=== PATIENT | female | born 1955 | race Caucasian/White ===

== ENCOUNTER → 2016-10-14 | Outpatient (CLI) | payer OTHER ==
[~2016-10-14] MED LIST: ASPI325T PO; ASPI81TA85 PO; ATEN50TA2 PO; CRES5TAB PO; ENAL10TA2 PO; LANTINJ4 SC; METF850T PO; PLAV75TA38 PO; VITA50003 PO; ZOLO100T PO
== END ==
LOC: M RAD 15:54
PROVIDERS: ATTEND Physician Assistant Medical
DX: Z12.31 Encounter for screening mammogram for malignant neoplasm of breast (principal)

== ENCOUNTER → 2016-10-20 | Outpatient (REF) | payer OTHER ==
[2016-10-20 15:55] LABS: BASO % 0.5 % (0.0-1.0); EOS # 0.2 K/mm3 (0.0-0.50); EOS % 2.5 % (0.0-3.0); LYMPH # 3.9 K/mm3 (1.5-4.5); LYMPH % 38.3 % (24.0-44.0); MEAN CORPUSCULAR HEMOGLOBIN 30.3 pg (27.0-33.0); MEAN CORPUSCULAR VOLUME 89.4 fl (80.0-96.0); MONO # 0.3 K/mm3 (0.0-0.8); MONO % 2.8 % (0.0-5.0); NEUTROPHILS # 5.5 K/mm3 (1.8-7.7); RED CELL DISTRIBUTION WIDTH 12.9 % (11.5-14.5); WHITE BLOOD COUNT 10.1 K/mm3 (4.0-10.0)
[2016-10-20 16:12] LABS: ALBUMIN 3.3 GM/DL (3.2-5.2); ALKALINE PHOSPHATASE 97 U/L (45-117); ALT/SGPT 21 U/L (12-78); ANION GAP 6 MEQ/L (8-16); AST/SGOT 13 U/L (15-37); BILIRUBIN,TOTAL 0.4 MG/DL (0.2-1.0); BLOOD UREA NITROGEN 11 MG/DL (7-18); CALCIUM LEVEL 8.9 MG/DL (8.8-10.2); CARBON DIOXIDE LEVEL 31 MEQ/L (21-32); CHLORIDE LEVEL 107 MEQ/L (98-107); CHOLESTEROL LEVEL 162 MG/DL (<200); CREATININE FOR GFR 0.81 MG/DL (0.55-1.02); GLOMERULAR FILTRATION RATE > 60.0 (>45); GLUCOSE, FASTING 138 MG/DL (80-110); POTASSIUM SERUM 4.7 MEQ/L (3.5-5.1); SODIUM LEVEL 144 MEQ/L (136-145); TOTAL PROTEIN 6.3 GM/DL (6.4-8.2); TRIGLYCERIDES LEVEL 205 MG/DL (<150)
== END ==
LOC: M LABDRAW1 15:27
PROVIDERS: ATTEND Physician Assistant Medical
DX: E11.9 Type 2 diabetes mellitus without complications (principal)

== ENCOUNTER → 2017-05-08 | Outpatient (REF) | payer MEDICARE, OTHER ==
[2017-05-08 13:53] LABS: BASO # 0.1 10^3/uL (0.0-0.2); BASO % 0.7 % (0.0-1.0); EOS # 0.3 10^3/uL (0.0-0.50); EOS % 2.4 % (0.0-3.0); HEMATOCRIT 42.1 % (36.0-47.0); HEMOGLOBIN 14.5 g/dl (12.0-16.0); IMMATURE GRANULOCYTE % 0.3 % (0-0); LYMPH % 35.7 % (24.0-44.0); MEAN CORPUSCULAR HGB CONC 34.4 g/dl (32.0-36.5); MEAN CORPUSCULAR VOLUME 87.2 fl (80.0-96.0); MONO # 0.5 10^3/uL (0.0-0.8); MONO % 4.7 % (0.0-5.0); NEUTROPHILS # 6.2 10^3/uL (1.8-7.7); NEUTROPHILS % 56.2 % (36.0-66.0); PLATELET COUNT, AUTOMATED 211 10^3/uL (150-450); RED BLOOD COUNT 4.83 10^6/uL (4.00-5.40); RED CELL DISTRIBUTION WIDTH 12.8 % (11.5-14.5); WHITE BLOOD COUNT 11.1 10^3/uL (4.0-10.0)
[2017-05-08 14:00] LABS: ESTIMATED AVERAGE GLUCOSE 183 MG/DL (60-110)
[2017-05-08 14:21] LABS: ALBUMIN 3.6 GM/DL (3.2-5.2); ALBUMIN/GLOBULIN RATIO 1.24 (1.00-1.93); ALKALINE PHOSPHATASE 104 U/L (45-117); ALT/SGPT 19 U/L (12-78); ANION GAP 9 MEQ/L (8-16); AST/SGOT 15 U/L (7-37); BILIRUBIN,TOTAL 0.4 MG/DL (0.2-1.0); BLOOD UREA NITROGEN 16 MG/DL (7-18); CALCIUM LEVEL 8.9 MG/DL (8.8-10.2); CARBON DIOXIDE LEVEL 28 MEQ/L (21-32); CHLORIDE LEVEL 105 MEQ/L (98-107); CHOLESTEROL LEVEL 149 MG/DL (<200); CHOLESTEROL RISK RATIO 4.257 (<5); CREATININE FOR GFR 0.86 MG/DL (0.55-1.02); GLOMERULAR FILTRATION RATE > 60.0 (>45); GLUCOSE, FASTING 180 MG/DL (80-110); HDL CHOLESTEROL 35 MG/DL (>40); NON-HDL-C 114 MG/DL; POTASSIUM SERUM 4.1 MEQ/L (3.5-5.1); SODIUM LEVEL 142 MEQ/L (136-145); TOTAL PROTEIN 6.5 GM/DL (6.4-8.2); TRIGLYCERIDES LEVEL 280 MG/DL (<150)
== END ==
LOC: M LABDRAW1 11:53
DX: E11.9 Type 2 diabetes mellitus without complications (principal)
CPT/HCPCS: 80053

== ENCOUNTER → 2018-02-26 | Outpatient (CLI) | payer MEDICARE ==
[~2018-02-26] MED LIST changes: -ASPI325T PO; -ASPI81TA85 PO; -ATEN50TA2 PO; -CRES5TAB PO; +E-Z-GAS II EFFERVESCENT PACKET (SODIUM BICARB./CITRIC ACID/SIMETHICONE) As Ordered; +E-Z-HD 98% w/w 340GM SUSP BTL As Ordered; +E-Z-PAQUE 96% w/w SUSP 176GM BTL As Ordered; -ENAL10TA2 PO; -LANTINJ4 SC; -METF850T PO; -PLAV75TA38 PO; -VITA50003 PO; -ZOLO100T PO
== END ==
LOC: M RAD 09:20
DX: R10.13 Epigastric pain (principal)
CPT/HCPCS: 74245

== ENCOUNTER 2018-06-16 12:06 | Emergency (ER) | payer MEDICARE ==
[~2018-06-16] VITALS: Ht 165.1 cm; Wt 106.8 kg
[~2018-06-16 12:06] MED LIST changes: +ASPI325T PO; +ASPI81TA85 PO; +ATEN50TA2 PO; +CRES5TAB PO; -E-Z-GAS II EFFERVESCENT PACKET (SODIUM BICARB./CITRIC ACID/SIMETHICONE) As Ordered; -E-Z-HD 98% w/w 340GM SUSP BTL As Ordered; -E-Z-PAQUE 96% w/w SUSP 176GM BTL As Ordered; +ENAL10TA2 PO; +LANTINJ4 SC; +METF850T4 PO; +PLAV1TAB2 PO; +VITA50005 PO; +ZOLO100T PO
[2018-06-16] MEDS ORDERED: ONDANSETRON 4MG/2ML VIAL (J2405) IV ONE (13:15)
[2018-06-16] MEDS ORDERED: MORPHINE 4 MG/ML 1ML VIAL/SYRINGE (J2270) IV PRN (13:15)
[2018-06-16] MEDS ORDERED: NS 1,000 ML IV ONE (13:15)
[2018-06-16 13:49] LABS: BASO # 0.1 10^3/uL (0.0-0.2); BASO % 0.3 % (0.0-1.0); EOS % 0.2 % (0.0-3.0); HEMATOCRIT 40.1 % (36.0-47.0); HEMOGLOBIN 13.4 g/dl (12.0-15.5); LYMPH # 2.9 10^3/uL (1.5-4.5); LYMPH % 19.9 % (24.0-44.0); MEAN CORPUSCULAR HEMOGLOBIN 29.1 pg (27.0-33.0); MEAN CORPUSCULAR HGB CONC 33.4 g/dl (32.0-36.5); MEAN CORPUSCULAR VOLUME 87.2 fl (80.0-96.0); MONO # 0.6 10^3/uL (0.0-0.8); MONO % 4.4 % (0.0-5.0); NEUTROPHILS # 10.7 10^3/uL (1.8-7.7); NEUTROPHILS % 74.7 % (36.0-66.0); PLATELET COUNT, AUTOMATED 263 10^3/uL (150-450); WHITE BLOOD COUNT 14.3 10^3/uL (4.0-10.0)
[2018-06-16] MEDS ORDERED: BYDU2INJ7 SC (13:59)
[2018-06-16] MEDS ORDERED: RANI150T PO (13:59)
[2018-06-16] MEDS ORDERED: ATOR40TA75 PO (13:59)
[2018-06-16 14:22] LABS: APPEARANCE, URINE CLEAR (CLEAR); BACTERIA, URINE AUTO NEGATIVE (NEGATIVE); BILIRUBIN, URINE AUTO NEGATIVE (NEGATIVE); BLOOD, URINE BLOOD 1+ (NEGATIVE); COLOR, URINE YELLOW (YELLOW); GLUCOSE, URINE (UA) AUTO NEGATIVE (NEGATIVE); KETONE, URINE AUTO NEGATIVE (NEGATIVE); LEUKOCYTE ESTERASE, URINE AUTO NEGATIVE (NEGATIVE); MUCUS, URINE SMALL (NEGATIVE); NITRITE, URINE AUTO NEGATIVE (NEGATIVE); PROTEIN, URINE AUTO NEGATIVE (NEGATIVE); RBC, URINE AUTO 10 /HPF (0-3); SPECIFIC GRAVITY URINE AUTO 1.018 (1.002-1.035); SQUAMOUS EPITHELIAL CELL UR AU 0 /HPF (0-6); UROBILINOGEN, URINE AUTO 0.2 mg/dL (0.0-2.0); WBC, URINE AUTO 1 /HPF (0-3)
[2018-06-16 14:27] LABS: ALBUMIN 3.3 GM/DL (3.2-5.2); ALT/SGPT 14 U/L (12-78); AMYLASE 20 U/L (25-115); BILIRUBIN,DIRECT 0.1 MG/DL (0.0-0.2); BILIRUBIN,TOTAL 0.6 MG/DL (0.2-1.0); BLOOD UREA NITROGEN 12 MG/DL (7-18); CALCIUM LEVEL 8.7 MG/DL (8.8-10.2); CARBON DIOXIDE LEVEL 33 MEQ/L (21-32); CHLORIDE LEVEL 104 MEQ/L (98-107); GLOMERULAR FILTRATION RATE > 60.0 (>45); GLUCOSE, FASTING 91 MG/DL (70-100); LIPASE 70 U/L (73-393); POTASSIUM SERUM 4.8 MEQ/L (3.5-5.1); SODIUM LEVEL 139 MEQ/L (136-145); TOTAL PROTEIN 6.7 GM/DL (6.4-8.2)
[2018-06-16] MEDS ORDERED: ISOVUE-370 76% 100ML VIAL (Q9967) As Ordered ONE (14:29)
--- NOTE | 2018-06-16 15:10 | REP ---
CT of the abdomen and pelvis with IV contrast, without bowel contrast for left lower quadrant pain: There are no comparisons. The visualized lung maguire are unremarkable. The hepatic parenchyma is homogeneous. There are surgical clips in the gallbladder fossa. Pancreas and spleen are normal size and unremarkable except for splenic calcified granulomas. The adrenals, kidneys and abdominal aorta are unremarkable. There are numerous diverticula in the descending colon and sigmoid colon. There is focal wall thickening of the sigmoid colon and there is clement colonic induration of the sigmoid colon. The findings are compatible with diverticulitis in the appropriate clinical setting. Neoplasm is also a possibility. There is no pericolonic fluid collection to suggest abscess. There is no pneumoperitoneum. There is no ascites. Pelvis: The appendix and terminal ileum are unremarkable. There is a hysterectomy. Vaginal cuff and adnexa are unremarkable. There is no ascites or adenopathy. Impression: Acute diverticulitis of the sigmoid colon without focal fluid collection to suggest abscess. Focal wall thickening of the sigmoid colon which could be related to diverticulitis or could represent neoplasm. No ascites or pneumoperitoneum. Cholecystectomy and hysterectomy. Electronically Signed by Kasi Thurston MD 06/16/2018 03:01 P
[2018-06-16] MEDS ORDERED: metroNIDAZOLE (FLAGYL) 500 MG TAB PO ONE (15:15)
[2018-06-16] MEDS ORDERED: CIPROFLOXACIN 500 MG TAB PO ONE (15:15)
[2018-06-16] MEDS ORDERED: FLAG500T PO (15:23)
[2018-06-16] MEDS ORDERED: LOTR1CRE12 TOP (15:23)
[2018-06-16] MEDS ORDERED: CIPR-249 PO (15:23)
[2018-06-16] MEDS ORDERED: ONDA4TAB6 PO (15:25)
[2018-06-16 15:48] VITALS: BP 196/95
== END 2018-06-16 15:51 | disposition home or self-care (01) ==
LOC: M ED 12:06
DX: K57.32 Diverticulitis of large intestine without perforation or abscess without bleeding (principal); B35.6 Tinea cruris; I10 Essential (primary) hypertension; E11.9 Type 2 diabetes mellitus without complications; E78.00 Pure hypercholesterolemia, unspecified; E28.2 Polycystic ovarian syndrome; Z86.73 Personal history of transient ischemic attack (TIA), and cerebral infarction without residual deficits; Z79.899 Other long term (current) drug therapy; Z79.82 Long term (current) use of aspirin; Z79.4 Long term (current) use of insulin

== ENCOUNTER 2018-06-18 08:38 | Inpatient (IN) | payer MEDICARE ==
[~2018-06-18] VITALS: Ht 165.1 cm; Wt 104.8 kg
[~2018-06-18 08:38] MED LIST changes: +ATOR40TA75 PO; +BYDU2INJ7 SC; +CIPR-249 PO; +FLAG500T PO; +LOTR1CRE12 TOP; +ONDA4TAB6 PO; +RANI150T PO
[2018-06-18] MEDS ORDERED: NS 1,000 ML IV SCH (09:01)
[2018-06-18] MEDS ORDERED: ONDANSETRON 4MG/2ML VIAL (J2405) IV ONE (09:15)
[2018-06-18] MEDS: MORPHINE 4 MG/ML 1ML VIAL/SYRINGE (J2270) IV PRN ×2 (09:27→13:37)
[2018-06-18 09:50] LABS: BASO # 0.1 10^3/uL (0.0-0.2); BASO % 0.4 % (0.0-1.0); EOS % 0.1 % (0.0-3.0); HEMATOCRIT 39.2 % (36.0-47.0); HEMOGLOBIN 12.8 g/dl (12.0-15.5); LYMPH # 2.2 10^3/uL (1.5-4.5); LYMPH % 13.5 % (24.0-44.0); MEAN CORPUSCULAR HEMOGLOBIN 28.4 pg (27.0-33.0); MEAN CORPUSCULAR HGB CONC 32.7 g/dl (32.0-36.5); MEAN CORPUSCULAR VOLUME 87.1 fl (80.0-96.0); MONO # 0.6 10^3/uL (0.0-0.8); MONO % 3.7 % (0.0-5.0); NEUTROPHILS # 13.2 10^3/uL (1.8-7.7); NEUTROPHILS % 81.6 % (36.0-66.0); PLATELET COUNT, AUTOMATED 289 10^3/uL (150-450); WHITE BLOOD COUNT 16.1 10^3/uL (4.0-10.0)
[2018-06-18 09:53] LABS: INR 1.1; PROTHROMBIN TIME 14.3 SECONDS (12.1-14.4)
[2018-06-18 09:54] LABS: PARTIAL THROMBOPLASTIN TIME 27.8 SECONDS (25.4-37.6)
[2018-06-18 10:02] LABS: ALT/SGPT 17 U/L (12-78); AMYLASE 15 U/L (25-115); BILIRUBIN,DIRECT < 0.1 MG/DL (0.0-0.2); BILIRUBIN,TOTAL 0.5 MG/DL (0.2-1.0); BLOOD UREA NITROGEN 11 MG/DL (7-18); CALCIUM LEVEL 8.6 MG/DL (8.8-10.2); CARBON DIOXIDE LEVEL 27 MEQ/L (21-32); CHLORIDE LEVEL 105 MEQ/L (98-107); CREATININE FOR GFR 0.75 MG/DL (0.55-1.30); GLOMERULAR FILTRATION RATE > 60.0 (>45); GLUCOSE, FASTING 165 MG/DL (70-100); LIPASE 69 U/L (73-393); POTASSIUM SERUM 4.3 MEQ/L (3.5-5.1); SODIUM LEVEL 138 MEQ/L (136-145); TOTAL PROTEIN 7.5 GM/DL (6.4-8.2)
[2018-06-18] MEDS: GASTROGRAFIN SOLUTION 30ML PO SCH ×2 (10:34→11:13)
[2018-06-18] MEDS ORDERED: CIPR500T39 PO (11:41)
[2018-06-18] MEDS ORDERED: METR-201 PO (11:41)
--- NOTE | 2018-06-18 13:27 | REP ---
CT ABDOMEN AND PELVIS WITH ORAL CONTRAST ONLY: 06/18/2018. Comparison: CT abdomen and pelvis 06/16/2018. Clinical history: Worsening left-sided abdominal pain with vomiting. Known sigmoid diverticulitis. Evaluate for perforation or abscess. Technique: Oral Gastrografin mixture 10 mL in 290 mL flavored water for two doses per our bowel contrast protocol. Scanning through the abdomen and pelvis with coronal and sagittal reconstructions provided. Findings: CT abdomen: The lung bases with minimal dependent atelectasis but otherwise clear. Trace pericardial thickening or fluid. There is no hiatal hernia. Some retained oral contrast in the stomach and contrast reaches the proximal jejunum distal ileum. No dilated loops to suggest ileus or obstruction. Gallbladder absent. Pancreas and adrenal glands normal. Kidneys without stone, mass or hydronephrosis. Aorta has calcifications without aneurysm. No periaortic or retroperitoneal pathologic sized lymphadenopathy. Abdominal portion of the colon shows the right colon, transverse colon and flexures with some scattered diverticula but no diverticulitis there. In the distal left colon at and just below the iliac crest there is now diverticulitis which was not present 2 days ago. This is mild. There is no fluid in the peroneal gutters. The more significant diverticulitis is in the sigmoid with extensive diverticulosis and scattered inflammatory changes with stranding in the fat and trace fluid. I do not see abscess, lung window review of all CT slices abdomen and pelvis shows no perforation or free air. The uterus is absent. Vaginal cuff intact. No pelvic mass. Small bowel loops in the pelvis without dilatation. No inflammatory changes about the cecum. I see no ventral or inguinal hernia nor pathologic sized inguinal adenopathy. The bone windows show no interval change. Degenerative disc and facet arthritic changes, some hip osteoarthritic change. No destructive lesion. Impression: 1. There is extensive sigmoid diverticulosis with diverticulitis and inflammatory changes in the pericolonic fat but no perforation or abscess. Trace fluid in the pelvis. No drainable abscess collection. 2. In the distal left colon there is a new separate area of diverticulitis which is fairly mild compared to the sigmoid component, but was not present 2 days ago. I see no other finding or interval change. Electronically Signed by Gino Dunaway MD 06/18/2018 07:50 P
[2018-06-18] MEDS ORDERED: CIPROFLOXACIN 400 MG in APPROPRIATE DILUENT 1 EA IV ONE (13:30)
[2018-06-18] MEDS ORDERED: metroNIDAZOLE 500 MG in APPROPRIATE DILUENT 1 EA IV ONE (13:30)
[2018-06-18] MEDS ORDERED: ACET500T15 PO (13:53)
[2018-06-18] MEDS ORDERED: ATEN25TA PO (13:53)
[2018-06-18] MEDS ORDERED: CLOT1CRE6 TOP (13:53)
[2018-06-18] MEDS ORDERED: ONDA4TAB6 PO (13:53)
[2018-06-18] MEDS ORDERED: METF-877 PO (13:54)
[2018-06-18] MEDS ORDERED: ONDANSETRON 4 MG TAB (S0181) PO PRN (16:45)
[2018-06-18] MEDS: NS 1,000 ML IV SCH (17:36)
[2018-06-18] MEDS ORDERED: DEXTROSE 50% 50 ML SYRINGE IV PRN (19:30)
[2018-06-18] MEDS ORDERED: GLUCOSE 4 GM CHEW TABLET PO PRN (19:30)
[2018-06-18] MEDS ORDERED: GLUCAGON FOR INJ 1 MG VIAL (J1610) SC PRN (19:30)
--- NOTE | 2018-06-18 20:41 | HPE ---
DATE OF ADMISSION: 06/18/[address] Hoyt. PRIMARY CARE PROVIDER: Melita David at [facility] CLEAR COAT SPRAYER: Dr. Oviedo HISTORY OF THE PRESENT ILLNESS: Ms. Angel is a 62-year-old female who initially presented to the emergency room (ER) 2 days ago for lower abdominal pain and nausea and vomiting, was found to have diverticulitis, sent home on oral antibiotics without any improvement and thus she returns to the ER today. She states that her pain worsened last night in the left lower quadrant, radiating into the back and associated nonbloody vomit earlier this morning. She describes the pain as sharp, achy, constant, worse with movement and with gas. A repeat CT of the abdomen on this admission reveals extensive sigmoid diverticulosis with diverticulitis and pericolonic fat, without any perforation or abscess. She is, therefore, being admitted after failing outpatient oral antibiotics. The patient states this feels like her similar episodes of diverticulitis in the past. She started she has 4-5 similar episodes per year and usually resolves with oral antibiotics and this is the first episode requiring admission and IV antibiotics for diverticulitis. PAST MEDICAL HISTORY: Insulin-dependent diabetes mellitus type 2. Hypertension with pulmonary hypertension. CVA. Diastolic congestive heart failure (CHF). Her 10/14/14 echo - grade 2 diastolic dysfunction. Mitral valve insufficiency. HOME MEDICATIONS: - Tylenol - aspirin 81 mg - atenolol 25 mg by mouth nightly - atorvastatin 40 mg by mouth nightly - Plavix 75 mg by mouth daily - clotrimazole - enalapril 10 mg nightly - Bydureon 2 mg subcu weekly - insulin glargine - metformin - Zofran - ranitidine - sertraline ALLERGIES: None. SOCIAL HISTORY: Actively smoking 5-8 cigarettes per day over the past 45 years. Currently is on disability due to her history of transient ischemic attack (TIAs). 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 SURGICAL HISTORY: Cholecystectomy, dilation and curettage (D and C) with exploratory laparotomy, two sections and a hysterectomy, right carotid artery stent with a shunt in the right eye due to stent dislodgement, right wrist cyst removal, and a right knee repair. REVIEW OF SYSTEMS: GENERAL: Denies any fevers, chills, weight loss. HEENT: Denies headache, blurred vision, eye pain, ear pain, dysphagia. CARDIAC: Denies chest pain, palpitations. RESPIRATORY: Denies coughing, wheezing, shortness of breath, or phlegm. ABDOMEN: Admits to nausea and vomiting. No hematemesis. No melena or hematochezia. Admits to left lower quadrant achy constant abdominal pain, similar to previous episodes of her diverticulitis. Denies any recent changes in bowel habits. SKIN: Denies any new rashes but admits to bilateral groin yeast-like infection. VITAL SIGNS: Temperature 98.7, pulse 104, respirations 18, blood pressure is 163/72, mean arterial pressure (MAP) of 102, pulse oximetry 94% on room air. GENERAL: Resting comfortably in bed, in no acute distress. Alert and oriented times three. Fully conversant. HEENT: Normocephalic, atraumatic. Extraocular muscles intact. Anicteric sclerae. Moist mucous membranes. CARDIAC: Regular rate and rhythm. LUNGS: Clear to auscultation bilaterally. No audible wheezing, rhonchi or rales. ABDOMEN: No guarding, rigidity, or rebound tenderness. Normoactive bowel sounds throughout. There is tenderness to palpation in the left and the right lower quadrants. EXTREMITIES: 2+ radial pulses bilaterally. SKIN: Bilateral groin erythema with foul-smelling odor. Patient states it is itchy and has a history of multiple yeast infections in the past. NEUROLOGIC: No focal deficits. MUSCULOSKELETAL: Able to move all extremities. LABORATORY: WBC 16.1, hemoglobin and hematocrit 12.8 and 29.2, platelets 289. Electrolytes normal. BUN and creatinine 11 and 0.75. Urine culture is pending. CT of abd/pelvis: reveals extensive sigmoid diverticulosis with diverticulitis and inflammatory changes in the pericolonic fat and without any perforation or abscess. There is trace fluid in the pelvis. No drainable abscess collection. The distal left colon has a new separate area of diverticulitis, which is mild compared to sigmoid component, and this was not present two days ago. No other interval changes. ASSESSMENT AND PLAN: 1. Acute diverticulitis. Failed outpatient oral antibiotics. Will currently make nothing by mouth and start on IV Cipro and Flagyl. Advance diet as tolerated in the next few days. Gently hydrate given her history of grade 2 diastolic dysfunction. The patient states to having 4-5 episodes of diverticulitis per year. I spoke to her personally in the ER regarding outpatient followup for colonoscopy once her acute infection resolves, as well as possible elective colectomy. She states that she is already in the process of establishing with Dr. Prince and agrees to outpatient followup. 2. Insulin-dependent diabetes mellitus, type 2. Insulin sliding scale. Fingersticks every 6 hours, she is nothing by mouth. 3. Hypertension with Pulm HTN. Continue home medications with hold parameters. 4. History of CVA. Currently stable. Continue home aspirin, statin, and Plavix. Status post right carotid artery stent. 5. Grade 2 diastolic dysfunction. Currently no signs of volume overload. Monitor as she will be hydrated on IV fluids. 6. Deep vein thrombosis (DVT) prophylaxis. Lovenox subcu. DISPOSITION: Will admit to the hospitalist service, pending clinical improvement. My faculty preceptor for this patient encounter was physically present during the encounter and was fully available. All aspects of the patient interview, examination, medical decision making process, and medical care plan development were reviewed and approved by the faculty preceptor. The faculty preceptor is aware and concurs with the plan as stated in the body of this note and will attest to such by his/her cosignature. I have both independently examined this patient as well as reviewed the H&P. I have discussed in detail with the resident the findings and plan of treatment as documented in the resident's note- MD RAHUL Tijerina
[2018-06-18] MEDS: NYSTATIN 100,000 UNITS/GM TOPICAL PWD 15 GM TOP SCH (21:00)
[2018-06-18] MEDS: SERTRALINE 100 MG TAB PO SCH (21:35)
[2018-06-18] MEDS: ATORVASTATIN 20 MG TAB PO SCH (21:35)
[2018-06-18] MEDS: FAMOTIDINE 20 MG TAB PO SCH (21:36)
[2018-06-18] MEDS: ATENOLOL 25 MG TAB PO SCH (21:36)
[2018-06-18] MEDS: ENALAPRIL MALEATE 10 MG TAB PO SCH (21:36)
[2018-06-18] MEDS: metroNIDAZOLE 500 MG in APPROPRIATE DILUENT 1 EA IV SCH (21:50)
[2018-06-18 22:00] VITALS: BP 168/73
[2018-06-19] MEDS: NS 1,000 ML IV SCH ×3 (00:37→21:12)
[2018-06-19] MEDS: CIPROFLOXACIN 400 MG in APPROPRIATE DILUENT 1 EA IV SCH ×2 (01:24→14:45)
[2018-06-19 03:31] VITALS: BP 153/68
[2018-06-19] MEDS ORDERED: KETOROLAC 30 MG/ML VIAL (J1885) IV ONE (04:15)
[2018-06-19] MEDS ORDERED: ONDANSETRON 4MG/2ML VIAL (J2405) IV SCH (05:00)
[2018-06-19 06:00] VITALS: BP 161/70
[2018-06-19] MEDS: HumaLOG INSULIN (NovoLOG) PER UNIT SC SCH ×5 (06:00→21:00)
[2018-06-19] MEDS: metroNIDAZOLE 500 MG in APPROPRIATE DILUENT 1 EA IV SCH ×3 (06:52→23:52)
[2018-06-19 07:14] LABS: HEMATOCRIT 32.4 % (36.0-47.0); MEAN CORPUSCULAR HEMOGLOBIN 28.3 pg (27.0-33.0); MEAN CORPUSCULAR HGB CONC 32.1 g/dl (32.0-36.5); PLATELET COUNT, AUTOMATED 259 10^3/uL (150-450); RED BLOOD COUNT 3.68 10^6/uL (4.00-5.40); WHITE BLOOD COUNT 12.3 10^3/uL (4.0-10.0)
[2018-06-19 07:23] LABS: HEMOGLOBIN 10.4 g/dl (12.0-15.5)
[2018-06-19 07:40] LABS: BLOOD UREA NITROGEN 11 MG/DL (7-18); CALCIUM LEVEL 7.8 MG/DL (8.8-10.2); CARBON DIOXIDE LEVEL 27 MEQ/L (21-32); CHLORIDE LEVEL 105 MEQ/L (98-107); CREATININE FOR GFR 0.76 MG/DL (0.55-1.30); GLOMERULAR FILTRATION RATE > 60.0 (>45); GLUCOSE, FASTING 142 MG/DL (70-100); POTASSIUM SERUM 3.7 MEQ/L (3.5-5.1); SODIUM LEVEL 139 MEQ/L (136-145)
[2018-06-19] MEDS ORDERED: ONDANSETRON 4MG/2ML VIAL (J2405) IV PRN (08:00)
[2018-06-19] MEDS: CLOPIDOGREL 75 MG TAB PO SCH (10:05)
[2018-06-19] MEDS: ENOXAPARIN 40 MG/0.4 ML SYRINGE (J1650) SC SCH (10:05)
[2018-06-19] MEDS: ASPIRIN 81 MG ENTERIC TAB PO SCH (10:05)
[2018-06-19] MEDS: FAMOTIDINE 20 MG TAB PO SCH ×2 (10:05→23:52)
[2018-06-19] MEDS: NYSTATIN 100,000 UNITS/GM TOPICAL PWD 15 GM TOP SCH ×2 (10:06→23:52)
[2018-06-19 14:00] VITALS: BP 147/80
[2018-06-19] MEDS: ACETAMINOPHEN TAB 650MG DOSE (2X325MG) PO PRN (14:59)
--- NOTE | 2018-06-19 17:09 | IPN ---
DATE: 06/19/2018 SUBJECTIVE: Patient examined at bedside. She is feeling much better. Abdominal pain is improving. She is requesting diet. No issues overnight. PHYSICAL EXAMINATION: VITAL SIGNS: Temperature 96.9, pulse 90, respirations 18, blood pressure (BP) 161/70, mean arterial pressure (MAP) of 100, pulse oximetry 96% on room air. GENERAL: Resting comfortably in bed. No acute distress. Alert and oriented times three. Fully conversant. HEENT: Normocephalic, atraumatic. Extraocular muscles intact. Anicteric sclerae. Moist mucous membranes. CARDIAC: Regular rate and rhythm. LUNGS: Clear bilaterally. No audible wheezing, rhonchi, or rales. ABDOMEN: Benign without any guarding, rebound, rigidity. Normoactive bowel sounds throughout. Mild discomfort to palpation in the left lower quadrant. Otherwise is improved from abdominal pain on yesterday's exam. EXTREMITIES: Radial pulses 2+ bilaterally. No peripheral edema. SKIN: Bilateral groin erythema with foul-smelling odor continues. MUSCULOSKELETAL: Able to move all extremities. NEUROLOGIC: No focal deficits. LABORATORY DATA: WBC 12.3, hemoglobin and hematocrit 10.4 and 32.4, platelets 259. Electrolytes normal. BUN and creatinine 11 and 0.76. CRP 13.8. ASSESSMENT AND PLAN: 1. Acute diverticulitis, failed outpatient oral antibiotics. Is improving on intravenous (IV) Cipro and Flagyl started on June 18. She is requesting a diet, and pain is improving. Will slowly advance to full liquids today and advance as tolerated and discontinue her IV fluids. CRP is at 13. Will trend and monitor for improvement. 2. Will require outpatient followup and is in the process of establishing with Dr. Prince. Will need a colonoscopy and possible sigmoidectomy. 3. Drop in hemoglobin from 12 to 10 today, likely hemodilution. No occult bleeding. Continue to monitor. 4. Insulin-dependent diabetes mellitus, type 2. Insulin sliding scale. 5. Hypertension with pulmonary hypertension. Continue home blood pressure (BP) medications with hold parameters. 6. Grade 2 diastolic dysfunction per 10/14/2014 echo as well as mitral valve insufficiency. No signs of volume overload. Continue monitoring. 7. History of cerebrovascular accident (CVA), stable. Continue aspirin, statin, Plavix. She is status post right carotid artery stent. 8. Deep vein thrombosis (DVT) prophylaxis. Lovenox subcutaneous. DISPOSITION: Pending clinical improvement. Likely discharge in the next few days. My faculty preceptor for this patient encounter was physically present during the encounter and was fully available. All aspects of the patient interview, examination, medical decision making process, and medical care plan development were reviewed and approved by the faculty preceptor. The faculty preceptor is aware and concurs with the plan as stated in the body of this note and will attest to such by his/her co-signature.
[2018-06-19 22:00] VITALS: BP 143/64
[2018-06-19] MEDS: ATENOLOL 25 MG TAB PO SCH (23:51)
[2018-06-19] MEDS: ENALAPRIL MALEATE 10 MG TAB PO SCH (23:51)
[2018-06-19] MEDS: ATORVASTATIN 20 MG TAB PO SCH (23:51)
[2018-06-19] MEDS: SERTRALINE 100 MG TAB PO SCH (23:51)
[2018-06-20] MEDS: CIPROFLOXACIN 400 MG in APPROPRIATE DILUENT 1 EA IV SCH ×2 (02:41→13:33)
[2018-06-20] MEDS: NS 1,000 ML IV SCH (03:38)
[2018-06-20 06:00] VITALS: BP 139/63
[2018-06-20] MEDS: metroNIDAZOLE 500 MG in APPROPRIATE DILUENT 1 EA IV SCH ×3 (06:17→21:29)
[2018-06-20 06:49] LABS: MEAN CORPUSCULAR HEMOGLOBIN 28.6 pg (27.0-33.0); MEAN CORPUSCULAR HGB CONC 32.4 g/dl (32.0-36.5); MEAN CORPUSCULAR VOLUME 88.3 fl (80.0-96.0); PLATELET COUNT, AUTOMATED 270 10^3/uL (150-450); RED BLOOD COUNT 3.85 10^6/uL (4.00-5.40); WHITE BLOOD COUNT 10.6 10^3/uL (4.0-10.0)
[2018-06-20 07:08] LABS: BLOOD UREA NITROGEN 8 MG/DL (7-18); CARBON DIOXIDE LEVEL 27 MEQ/L (21-32); CHLORIDE LEVEL 107 MEQ/L (98-107); CREATININE FOR GFR 0.74 MG/DL (0.55-1.30); GLOMERULAR FILTRATION RATE > 60.0 (>45); GLUCOSE, FASTING 144 MG/DL (70-100); POTASSIUM SERUM 3.7 MEQ/L (3.5-5.1); SODIUM LEVEL 142 MEQ/L (136-145)
[2018-06-20] MEDS: CLOPIDOGREL 75 MG TAB PO SCH (08:21)
[2018-06-20] MEDS: HumaLOG INSULIN (NovoLOG) PER UNIT SC SCH ×4 (08:21→21:00)
[2018-06-20] MEDS: ENOXAPARIN 40 MG/0.4 ML SYRINGE (J1650) SC SCH (08:22)
[2018-06-20] MEDS: NYSTATIN 100,000 UNITS/GM TOPICAL PWD 15 GM TOP SCH ×2 (08:22→21:29)
[2018-06-20] MEDS: FAMOTIDINE 20 MG TAB PO SCH ×2 (08:22→21:29)
[2018-06-20] MEDS: ASPIRIN 81 MG ENTERIC TAB PO SCH (08:22)
--- NOTE | 2018-06-20 12:33 | IPNPDOC ---
Subjective Date Seen The patient was seen on 06/20/18. Subjective Chief Complaint/HPI Patient seen and examined at the bedside. Reports that she is feeling much better today and is eager to start a regular diet. No acute overnight events noted. Objective Physical Examination General Exam: Positive: Alert, Cooperative, No Acute Distress ENT Exam: Positive: Atraumatic, Mucous membr. moist/pink Neck Exam: Negative: JVD Chest Exam: Positive: Clear to auscultation, Normal air movement Heart Exam: Positive: Rate Normal, Normal S1, Normal S2 Abdomen Exam: Positive: Soft, Tenderness (mild tenderness to deep palpation in the left lower quadrant, significantly improved compared to yesterday. No rebound tenderness, guarding or rigidity noted.) Extremity Exam: Negative: Tenderness, Swelling Psych Exam: Positive: Oriented x 3 Assessment /Plan Plan/VTE VTE Prophylaxis Ordered?: Yes Plan Acute diverticulitis s/p failure of outpatient oral antibiotics Continues to improve on intravenous (IV) Cipro and Flagyl here WBC downtrending, pain is 1-2/10 according to the patient We will advance the patient's diet Patient has a scheduled appointment to follow up with Dr. Prince as an outpatient for colonoscopy and possible sigmoidectomy given recurrent diverticulitis. Insulin-dependent diabetes mellitus, type 2. Insulin sliding scale. Hypertension with pulmonary hypertension Continue home meds Grade 2 diastolic dysfunction No signs of volume overload. Continue monitoring. History of cerebrovascular accident (CVA), stable. Continue aspirin, statin, Plavix. She is status post right carotid artery stent. History of depression, stable Continue Zoloft History of GERD Continue Pepcid Deep vein thrombosis (DVT) prophylaxis. Lovenox subcutaneous. DISPOSITION: Pending clinical improvement. Likely discharge in the morning. VS, I&O, 24H, Fishbone Vital Signs/I&O Vital Signs Date Time Temp Pulse Resp B/P (MAP) Pulse Ox O2 Delivery O2 Flow Rate FiO2 06/20/18 06:00 97.9 60 18 139/63 (88) 95 06/18/18 20:15 Room Air I&O- Last 24 Hours up to 6 AM 06/20/18 06:00 Intake Total 2900 ml Output Total 2250 ml Balance 650 ml Laboratory Data 24H LABS Laboratory Tests 2 06/19/18 16:53: Bedside Glucose (Misc Panel) 125H 06/19/18 21:53: Bedside Glucose (Misc Panel) 126H 06/20/18 06:29: Nucleated Red Blood Cells % (auto) 0.0, Anion Gap 8, Glomerular Filtration Rate > 60.0, Blood Urea Nitrogen 8, Creatinine 0.74, Sodium Level 142, Potassium Level 3.7, Chloride Level 107, Carbon Dioxide Level 27, Calcium Level 8.0L, C- Reactive Protein, Quantitative 11.70H 06/20/18 11:48: Bedside Glucose (Misc Panel) 114 CBC/BMP Laboratory Tests 06/20/18 06:29 Red Blood Count 3.85 L, Mean Corpuscular Volume 88.3, Mean Corpuscular Hemoglobin 28.6, Mean Corpuscular Hemoglobin Concent 32.4, Red Cell Distribution Width 13.8, Calcium Level 8.0 L Microbiology Microbiology 06/18/18 Urine Culture - Final, Complete BEATRICE MCFADDEN MD Jun 20, 2018 12:33
[2018-06-20 14:00] VITALS: BP 142/78
[2018-06-20] MEDS: ATORVASTATIN 20 MG TAB PO SCH (21:27)
[2018-06-20] MEDS: ATENOLOL 25 MG TAB PO SCH (21:28)
[2018-06-20] MEDS: SERTRALINE 100 MG TAB PO SCH (21:28)
[2018-06-20 21:29] VITALS: BP 168/67
[2018-06-20] MEDS: ENALAPRIL MALEATE 10 MG TAB PO SCH (21:29)
[2018-06-20 22:00] VITALS: BP 168/67
[2018-06-20] MEDS: ACETAMINOPHEN TAB 650MG DOSE (2X325MG) PO PRN (23:26)
[2018-06-21] MEDS: CIPROFLOXACIN 400 MG in APPROPRIATE DILUENT 1 EA IV SCH (02:02)
[2018-06-21 05:55] LABS: HEMATOCRIT 31.3 % (36.0-47.0); HEMOGLOBIN 10.2 g/dl (12.0-15.5); MEAN CORPUSCULAR HGB CONC 32.6 g/dl (32.0-36.5); PLATELET COUNT, AUTOMATED 258 10^3/uL (150-450); RED BLOOD COUNT 3.64 10^6/uL (4.00-5.40); WHITE BLOOD COUNT 8.8 10^3/uL (4.0-10.0)
[2018-06-21] MEDS: metroNIDAZOLE 500 MG in APPROPRIATE DILUENT 1 EA IV SCH (05:55)
[2018-06-21 06:00] VITALS: BP 119/61
[2018-06-21 06:06] LABS: BLOOD UREA NITROGEN 11 MG/DL (7-18); C REACTIVE PROTEIN QUANTITATIV 7.05 MG/DL (0.00-0.30); CALCIUM LEVEL 8.1 MG/DL (8.8-10.2); CARBON DIOXIDE LEVEL 28 MEQ/L (21-32); CHLORIDE LEVEL 107 MEQ/L (98-107); CREATININE FOR GFR 0.74 MG/DL (0.55-1.30); GLOMERULAR FILTRATION RATE > 60.0 (>45); GLUCOSE, FASTING 131 MG/DL (70-100); POTASSIUM SERUM 3.5 MEQ/L (3.5-5.1); SODIUM LEVEL 142 MEQ/L (136-145)
[2018-06-21] MEDS ORDERED: POTASSIUM CHLORIDE 10 MEQ SR TABLET PO ONE (07:45)
[2018-06-21] MEDS: HumaLOG INSULIN (NovoLOG) PER UNIT SC SCH (08:29)
[2018-06-21] MEDS: FAMOTIDINE 20 MG TAB PO SCH (08:30)
[2018-06-21] MEDS: ASPIRIN 81 MG ENTERIC TAB PO SCH (08:30)
[2018-06-21] MEDS: ENOXAPARIN 40 MG/0.4 ML SYRINGE (J1650) SC SCH (08:30)
[2018-06-21] MEDS: CLOPIDOGREL 75 MG TAB PO SCH (08:30)
[2018-06-21] MEDS: NYSTATIN 100,000 UNITS/GM TOPICAL PWD 15 GM TOP SCH (08:31)
--- NOTE | 2018-06-21 09:49 | DS.PDOC ---
Discharge Summary General Date of Admission Jun 18, 2018 at 14:37 Date of Discharge 06/21/18 Attending Physician: BEATRICE MCFADDEN MD Discharge Summary PROCEDURES PERFORMED DURING STAY: None. ADMITTING DIAGNOSES: 1. Diverticulitis failed po antibiotics DISCHARGE DIAGNOSES: 1. Acute Diverticulitis Insulin-dependent diabetes mellitus type 2. Hypertension with pulmonary hypertension. CVA. Diastolic CHF per 10/09 echo-grade 2 diastolic dysfunction. Mitral valve insufficiency COMPLICATIONS/CHIEF COMPLAINT: Diverticulitis. HISTORY OF PRESENT ILLNESS: Ms. Angel is a 62-year-old female who initially presented to the emergency room (ER) 2 days ago for lower abdominal pain and nausea and vomiting, was found to have diverticulitis, sent home on oral antibi otics without any improvement and thus she returns to the ER today. She states that her pain worsened last night in the left lower quadrant, radiating into the back and associated nonbloody vomit earlier this morning. She describes the pain as sharp, achy, constant, worse with movement and with gas. A repeat CT of the abdomen on this admission reveals extensive sigmoid diverticulosis with divertic ulitis and pericolonic fat, without any perforation or abscess. She is, therefore, being admitted after failing outpatient oral antibiotics. The patient states this feels like her similar episodes of diverticulitis in the past. She started she has 4-5 similar episodes per year and usually resolves with oral antibiotics and this is the first episode requiring admission and IV antibiotics for diverticulitis. HOSPITAL COURSE: Pt was admitted, made NPO, started on IV antibiotics & IV fluids. Responded well, tolerated diet as it was advanced over the next few days. She had no complications during the stay. CRP trended down and her leukocytosis normalized. Of note, she states she experiences 4-5 episodes of diverticulitis per year. She was counseled on outpatient f/u for colonoscopy once her acute infection resolves, as well as possible elective sigmoidectomy. She states that she is already in the process of establishing with Dr. Prince and agrees to outpatient followup. She is to complete additional 5 days of po antibiotics and return to ER for emergency. She relayed understanding. DISCHARGE MEDICATIONS: Please see below. ALLERGIES: Please see below. PHYSICAL EXAMINATION ON DISCHARGE: VITAL SIGNS: Please see below. GENERAL: Resting comfortably in bed. No acute distress. Alert and oriented times three. Fully conversant. HEENT: Normocephalic, atraumatic. Extraocular muscles intact. Anicteric sclerae. Moist mucous membranes. CARDIAC: Regular rate and rhythm. LUNGS: Clear bilaterally. No audible wheezing, rhonchi, or rales. ABDOMEN: Benign without any guarding, rebound, rigidity. Normoactive bowel sounds. Mild discomfort to palpation in the left lower quadrant. EXTREMITIES: Radial pulses 2+ bilaterally. No peripheral edema. SKIN: Bilateral groin erythema with foul-smelling odor continues. MUSCULOSKELETAL: Able to move all extremities. NEUROLOGIC: No focal deficits. LABORATORY DATA: Please see below. IMAGIN06/18/18 Abd/pelvis CT: 1. There is extensive sigmoid diverticulosis with diverticulitis and inflammatory changes in the pericolonic fat but no perforation or abscess. Trace fluid in the pelvis. No drainable abscess collection. 2. In the distal left colon there is a new separate area of diverticulitis which is fairly mild compared to the sigmoid component, but was not present 2 days ago. I see no other finding or interval change. PROGNOSIS: good ACTIVITY: As tolerated. DIET: 2g sodium DISPOSITION: home DISCHARGE INSTRUCTIONS: 1. F/U with PCP within 1 week, with Surgery Dr. Prince within 2 weeks DISCHARGE CONDITION: Stable. TIME SPENT ON DISCHARGE: Greater than 35 minutes. Vital Signs/I&Os Vital Signs Date Time Temp Pulse Resp B/P (MAP) Pulse Ox O2 Delivery O2 Flow Rate FiO2 06/21/18 06:00 96.6 75 20 119/61 (80) 93 06/18/18 20:15 Room Air I&O- Last 24 Hours up to 6 AM 06/21/18 06:00 Intake Total 3160 ml Output Total 3100 ml Balance 60 ml Laboratory Data Labs 24H Laboratory Tests 2 06/20/18 11:48: Bedside Glucose (Misc Panel) 114 06/20/18 16:34: Bedside Glucose (Misc Panel) 120H 06/20/18 21:16: Bedside Glucose (Misc Panel) 144H 06/21/18 05:23: Nucleated Red Blood Cells % (auto) 0.0, Anion Gap 7L, Glomerular Filtration Rate > 60.0, Blood Urea Nitrogen 11, Creatinine 0.74, Sodium Level 142, Potassium Level 3.5, Chloride Level 107, Carbon Dioxide Level 28, Calcium Level 8.1L, C- Reactive Protein, Quantitative 7.05H CBC/BMP Laboratory Tests 06/21/18 05:23 Red Blood Count 3.64 L, Mean Corpuscular Volume 86.0, Mean Corpuscular Hemoglobin 28.0, Mean Corpuscular Hemoglobin Concent 32.6, Red Cell Distribution Width 13.5, Calcium Level 8.1 L FSBS Laboratory Tests Test 06/20/18 11:48 06/20/18 16:34 06/20/18 21:16 Range/Units Bedside Glucose (Misc Panel) 114 120 144 80-115 MG/DL Microbiology Microbiology 06/18/18 Urine Culture - Final, Complete Discharge Medications Scheduled Aspirin (Aspir-81) 81 Mg Tab, 81 MG PO DAILY, (Reported) Atenolol (Atenolol) 25 Mg Tab, 25 MG PO QHS, (Reported) Atorvastatin Calcium (Atorvastatin Calcium) 40 Mg Tab, 40 MG PO QHS, (Reported) Ciprofloxacin HCl (Ciprofloxacin Hydrochlori) 500 Mg Tab, 500 MG PO BID, (Reported) FOR 10 DAYS, STARTED 06/16 Clopidogrel Bisulfate (Plavix) 75 Mg Tab, 75 MG PO DAILY, (Reported) Enalapril Maleate (Enalapril Maleate) 10 Mg Tab, 10 MG PO QHS, (Reported) Exenatide (Bydureon Bcise) 2 Mg/0.85 Ml Inj, 2 MG SC QWEEK, (Reported) TUESDAYS Insulin Glargine (Lantus Solostar) 100 Unit/Ml Inj, 30 UNITS SC QHS, (Reported) Metformin Hydrochloride (Metformin Hydrochloride) 1,000 Mg Tab, 1,000 MG PO DAILY, (Reported) Metronidazole (Metronidazole) 500 Mg Tab, 500 MG PO TID, (Reported) FOR 10 DAYS, STARTED 06/16 Ranitidine HCl (Ranitidine HCl) 150 Mg Tab, 1 TAB PO BID, (Reported) Sertraline Hcl (Zoloft) 100 Mg Tab, 100 MG PO QHS, (Reported) Scheduled PRN Acetaminophen (Acetaminophen) 500 Mg Tab, 1,000 MG PO Q8H PRN for PAIN, (Reported) Clotrimazole (Clotrimazole AF) 1 % Cre, 1 APLCT TOP BID PRN for REDNESS/IRRITATION, (Reported) APPLY UNDER ABDOMINAL FOLD AND GROIN AREA Ondansetron (Ondansetron Odt) 4 Mg Tab, 4 MG PO Q6H PRN for NAUSEA OR VOMITING, (Reported) Allergies Coded Allergies: No Known Drug Allergy (Verified Allergy, Unknown, 10/19/14) GME ATTESTATION GME ATTESTATION My faculty preceptor for this patient encounter was physically present during the encounter and was fully available. All aspects of the patient interview, examination, medical decision making process, and medical care plan development were reviewed and approved by the faculty preceptor. The faculty preceptor is aware and concurs with the plan as stated in the body of this note and will attest to such by his/her cosignature. ETHEL BRO DO Jun 21, 2018 09:49
== END 2018-06-21 11:30 | disposition home or self-care (01) | DRG 392 ==
LOC: M ED 08:38 → M ED INP 14:37 → M MS5PR 20:30
PROVIDERS: ADMIT Internal Medicine; ATTEND Internal Medicine
DX: K57.32 Diverticulitis of large intestine without perforation or abscess without bleeding (principal); I50.32 Chronic diastolic (congestive) heart failure; E11.9 Type 2 diabetes mellitus without complications; I11.0 Hypertensive heart disease with heart failure; F17.210 Nicotine dependence, cigarettes, uncomplicated; I27.20 Pulmonary hypertension, unspecified; I34.0 Nonrheumatic mitral (valve) insufficiency; F32.9 Major depressive disorder, single episode, unspecified; Z79.4 Long term (current) use of insulin; Z79.82 Long term (current) use of aspirin; Z79.02 Long term (current) use of antithrombotics/antiplatelets; Z79.899 Other long term (current) drug therapy; Z86.73 Personal history of transient ischemic attack (TIA), and cerebral infarction without residual deficits

== ENCOUNTER → 2018-10-18 | Outpatient (CLI) | payer MEDICARE ==
[~2018-10-18] MED LIST changes: +ACET500T15 PO; +ASPI-1 PO; -ASPI325T PO; +ATEN25TA PO; +CIPR500T39 PO; +CLOT1CRE2 TOP; +METF-877 PO; +METR-265 PO
--- NOTE | 2018-10-18 13:03 | REP ---
Clinical: Preoperative assessment . Comparison: 01/12/2015 . Technique: PA and lateral. Findings: The mediastinum and cardiac silhouette are normal. The lung maguire are clear and without acute consolidation, effusion, or pneumothorax. The skeletal structures are intact and normal. Impression: 1. No acute cardiopulmonary process. Electronically Signed by Murali Velasquez MD 10/18/2018 12:55 P
== END ==
LOC: M RAD 12:38
PROVIDERS: ATTEND Nurse Practitioner Adult Health
DX: Z01.811 Encounter for preprocedural respiratory examination (principal)

== ENCOUNTER 2018-10-26 09:04 | Day surgery (SDC) | payer MEDICARE ==
[~2018-10-26] VITALS: Ht 165.1 cm; Wt 103.0 kg
[~2018-10-26 09:04] MED LIST changes: +LIDOCAINE 2% INJ 100 MG/5 ML SDV (FOR ANES.) As Ordered ONE; +NS 1,000 ML IV ONE; +PROPOFOL 200 MG/20 ML VIAL As Ordered ONE
[2018-10-26 11:03] VITALS: BP 137/72
[2018-10-26] MEDS ORDERED: PROPOFOL 200 MG/20 ML VIAL As Ordered ONE (11:18)
--- NOTE | 2018-10-26 11:35 | ROOR ---
Patient Name: Edwige Angel Procedure Date: 10/26/2018 9:55 AM Date of : 1955 Age: 63 Room: [facility] Gender: Female Note Status: Finalized Procedure: Colonoscopy Indications: Screening for colorectal malignant neoplasm, This is the patient's first colonoscopy Providers: Kiel Prince MD Referring MD: SOURAV CARDENAS NP Requesting Provider: Medicines: Monitored Anesthesia Care Complications: No immediate complications. Procedure: Pre-Anesthesia Assessment: - Prior to the procedure, a History and Physical was performed, and patient medications and allergies were reviewed. The patient is competent. The risks and benefits of the procedure and the sedation options and risks were discussed with the patient. All questions were answered and informed consent was obtained. Patient identification and proposed procedure were verified by the physician, the nurse and the anesthesiologist in the procedure room. Mental Status Examination: alert and oriented. CV Examination: regular rate and rhythm. Prophylactic Antibiotics: The patient does not require prophylactic antibiotics. Prior Anticoagulants: The patient has taken no previous anticoagulant or antiplatelet agents. ASA Grade Assessment: III - A patient with severe systemic disease. After reviewing the risks and benefits, the patient was deemed in satisfactory condition to undergo the procedure. The anesthesia plan was to use monitored anesthesia care (MAC). Immediately prior to administration of medications, the patient was re-assessed for adequacy to receive sedatives. The heart rate, respiratory rate, oxygen saturations, blood pressure, adequacy of pulmonary ventilation, and response to care were monitored throughout the procedure. The physical status of the patient was re-assessed after the procedure. The Colonoscope [id number] #[id number] was introduced through the anus and advanced to the sigmoid colon. The colonoscopy was unusually difficult due to multiple diverticula in the colon and a tortuous colon. The scope could be advanced only to approx. 30 cm due to angulation of the colon with multiple diverticuli. The patient tolerated the procedure well. The quality of the bowel preparation was fair. Findings: The perianal and digital rectal examinations were normal. Four sessile and semi-pedunculated polyps were found in the rectum. The polyps were 6 to 17 mm in size. These polyps were removed with a hot snare. Resection and retrieval were complete. Impression: - Preparation of the colon was fair. - Four 6 to 17 mm polyps in the rectum, removed with a hot snare. Resected and retrieved. Recommendation: - Await pathology results. - Discharge patient to home. - Resume previous diet. - Continue present medications. - Return to endoscopist in 2 weeks. - Perform an air contrast barium enema at appointment to be scheduled. Kiel Prince MD Kiel Prince MD 10/26/2018 11:35:12 AM Electronically signed by Kiel Prince MD Number of Addenda: 0 Note Initiated On: 10/26/2018 9:55 AM Estimated Blood Loss: Estimated blood loss: none.
== END 2018-10-26 11:43 | disposition home or self-care (01) ==
LOC: M OPP 09:04
PROVIDERS: ATTEND Surgery
DX: Z12.11 Encounter for screening for malignant neoplasm of colon (principal); K62.1 Rectal polyp

== ENCOUNTER → 2018-11-18 | Outpatient (CLI) | payer MEDICARE ==
[~2018-11-18] MED LIST changes: -LIDOCAINE 2% INJ 100 MG/5 ML SDV (FOR ANES.) As Ordered ONE; +LIQUID POLIBAR PLUS 105% w/v 1900ML BTL As Ordered ONE; -NS 1,000 ML IV ONE; -PROPOFOL 200 MG/20 ML VIAL As Ordered ONE
--- NOTE | 2018-11-18 17:21 | REP ---
BARIUM ENEMA AIR CONTRAST The procedure was performed under the direct supervision of Dr. Solano. The images were reviewed with Dr. Solano. The medical authorization specialist film shows no organomegaly or pathological masses. The test gas pattern is nonspecific. There are surgical clips in the right upper quadrant. Liquid barium and air were instilled into the colon and retrograde flow of the barium air mixture. In the sigmoid and left colon there are innumerable diverticula with redundancy of the sigmoid colon. This makes it difficult to evaluate for polyps. Haustration is otherwise unremarkable. There is free flow of contrast to the cecum. The appendix is visualized. There are a few mobile filling defects seen throughout the examination consistent with small stool particles from incomplete cleansing. There are no polypoid masses identified. There are no annular constricting lesions identified. Impression: Innumerable diverticula in the sigmoid and left colon. There is no evidence of diverticulitis. 1.4 minutes of fluoroscopy time was utilized for this procedure. Reviewed by BRIAN Casanova 11/18/2018 04:18 P Electronically Signed by Kasi Solano MD 11/18/2018 05:13 P
== END ==
LOC: M RAD 08:31
PROVIDERS: ATTEND Nurse Practitioner
DX: K57.32 Diverticulitis of large intestine without perforation or abscess without bleeding (principal)

== ENCOUNTER → 2022-03-23 | Outpatient (CLI) | payer MEDICARE ==
[~2022-03-23] MED LIST changes: +AMLO1TAB24 PO; -ASPI81TA85 PO; +ASPI81TA86 PO; +CLOP75TA99 PO; -CLOT1CRE2 TOP; +CLOT1CRE56 TOP; +ECOT81TA5 PO; +ELIQ5TAB PO; +ENAL-36 PO; -ENAL10TA2 PO; -LIQUID POLIBAR PLUS 105% w/v 1900ML BTL As Ordered ONE; -PLAV1TAB2 PO; +SEMA7TAB2 PO
== END ==
LOC: M LABSMTC 11:27
PROVIDERS: ATTEND Anesthesiology
DX: Z01.812 Encounter for preprocedural laboratory examination (principal); Z11.52 Encounter for screening for COVID-19

== ENCOUNTER 2023-04-30 06:02 | Day surgery (SDC) | payer MEDICARE ==
[~2023-04-30] VITALS: Ht 165.1 cm; Wt 108.6 kg
[~2023-04-30 06:02] MED LIST changes: +ACET-897 PO; +AMIO200T49 PO; +ATOR80TA59 PO; -ENAL-36 PO; +ENAL1TAB50 PO; +LASI20TA3 PO; +LOPR1TAB6 PO
[2023-04-30] MEDS ORDERED: LR 1,000 ML IV SCH ×2 (06:35→07:15)
[2023-04-30] MEDS ORDERED: propofoL 200 MG/20 ML VIAL As Ordered ONE (07:12)
[2023-04-30] MEDS ORDERED: LIDOCAINE 2% 100MG/5ML SDV (FOR ANES.) As Ordered ONE (07:12)
[2023-04-30] MEDS ORDERED: ONDANSETRON 4MG 2ML VIAL IV PRN (07:15)
[2023-04-30] MEDS ORDERED: fentaNYL 100 MCG/2 ML INJECTION IV PRN (07:15)
[2023-04-30 08:59] VITALS: BP 133/60; TEMP 97.4; O2SAT 95
== END 2023-04-30 09:03 | disposition home or self-care (01) ==
LOC: M SDC 06:02
PROVIDERS: ATTEND Internal Medicine Cardiovascular Disease
DX: I48.92 Unspecified atrial flutter (principal); I50.9 Heart failure, unspecified; E11.9 Type 2 diabetes mellitus without complications; I48.91 Unspecified atrial fibrillation; Z86.73 Personal history of transient ischemic attack (TIA), and cerebral infarction without residual deficits; F41.9 Anxiety disorder, unspecified; F32.A Depression, unspecified; Z88.8 Allergy status to other drugs, medicaments and biological substances; Z79.899 Other long term (current) drug therapy; Z79.01 Long term (current) use of anticoagulants; Z79.4 Long term (current) use of insulin; Z79.85 Long-term (current) use of injectable non-insulin antidiabetic drugs; F17.210 Nicotine dependence, cigarettes, uncomplicated

== ENCOUNTER → 2023-05-05 | Outpatient (REF) | payer MEDICARE | LOC: M LABWUC 16:15 | PROVIDERS: ATTEND Internal Medicine Cardiovascular Disease | DX: I48.0 Paroxysmal atrial fibrillation (principal) ==